=== PATIENT | female | born 1975 | race African-American/Black ===

== ENCOUNTER 2019-10-20 11:44 | Emergency (ER) | payer MEDICAID ==
[~2019-10-20] VITALS: Ht 160 cm; Wt 110.0 kg
[2019-10-20 11:58] VITALS: Ht 160 cm; Wt 110.0 kg
[2019-10-20] MEDS ORDERED: PROVENTIL/2.5 MG/3 M (11:58)
[2019-10-20 12:19] LABS: BASOPHILS 0.5 % (0-2); EOSINOPHILS 9.6 % (0-7); HEMOGLOBIN 15.1 g/dL (12-16); LYMPHOCYTES 32.3 % (15-50); MCH 31.3 pg (26.0-34.0); MCHC 32.8 g/dL (31.0-37.0); MCV 95.4 fL (80.0-100.0); MEAN PLATELET VOLUME 9.4 fL (7.4-10.4); MONOCYTES 5.9 % (2-11); NEUTROPHILS 51.7 % (40-80); PLATELET COUNT 296 10x3/uL (130-400); RBC 4.82 10x6/uL (4.00-5.40); RDW 12.4 % (11.5-14.5); WBC 7.7 10x3/uL (4.8-10.8)
[2019-10-20 12:28] LABS: ANION GAP 8.2 mmol/L (8-16); CALCIUM 8.4 mg/dL (8.5-10.1); CARBON DIOXIDE 27.6 mmol/L (21.0-32.0); CREATININE - SERUM 1.1 mg/dL (0.6-1.3); POTASSIUM - SERUM 3.8 mmol/L (3.5-5.1)
[2019-10-20 12:35] LABS: ALBUMIN 3.7 g/dL (3.4-5.0); BILIRUBIN - TOTAL 0.73 mg/dL (0.2-1.3); PROTEIN - SERUM 7.5 g/dL (6.4-8.2)
[2019-10-20] MEDS ORDERED: ALBUTEROL1.25 MG/3 INH (14:22)
[2019-10-20] MEDS ORDERED: ALBUTEROL SULF8.5 GM INH (14:22)
[2019-10-20] MEDS ORDERED: MEDROL DOSE PACK4 MG PO (14:33)
[2019-10-20 15:01] VITALS: BP 136/74
== END 2019-10-20 15:01 | disposition home or self-care (01) ==
LOC: D.ER 11:44
PROVIDERS: Family Medicine
DX: J44.9 Chronic obstructive pulmonary disease, unspecified (principal); R05 Cough